=== PATIENT | female | born 1990 | race Two or more races ===

== ENCOUNTER 2017-12-26 21:47 | Emergency (ER) | payer OTHER ==
[~2017-12-26] VITALS: Ht 160 cm; Wt 46.3 kg
[2017-12-27] MEDS ORDERED: PEPCID AC20 MG PO (02:38)
== END 2017-12-27 03:02 | disposition home or self-care (01) ==
LOC: ER 21:47
DX: O26.891 Other specified pregnancy related conditions, first trimester (principal); K29.70 Gastritis, unspecified, without bleeding; R53.1 Weakness; E86.0 Dehydration; Z34.81 Encounter for supervision of other normal pregnancy, first trimester

== ENCOUNTER 2018-04-07 18:39 | Emergency (ER) | payer OTHER ==
[~2018-04-07] VITALS: Ht 160 cm; Wt 47.6 kg
[~2018-04-07 18:39] MED LIST: PEPCID AC20 MG PO
== END 2018-04-07 20:18 | disposition home or self-care (01) ==
LOC: ER 18:39
DX: J06.9 Acute upper respiratory infection, unspecified (principal)

== ENCOUNTER 2018-05-06 13:33 | Outpatient (CLI) | payer OTHER | END 2018-05-07 10:59 | disposition home or self-care (01) | LOC: OBS/DEL 13:33 | DX: O26.892 Other specified pregnancy related conditions, second trimester (principal); R42 Dizziness and giddiness; Z34.82 Encounter for supervision of other normal pregnancy, second trimester ==

== ENCOUNTER 2018-07-24 22:14 | Inpatient (IN) | payer OTHER ==
[~2018-07-24] VITALS: Ht 160 cm; Wt 56.7 kg
[2018-07-28] MEDS ORDERED: PERCOCET 5-3251 EACH PO (08:27)
== END 2018-07-28 10:00 | disposition home or self-care (01) | DRG 785 ==
LOC: OBS/DEL 22:14 → OB/GYN 07-25 04:17 → LDR 07-25 04:17 → OB/GYN 07-25 08:18
PROVIDERS: ADMIT Specialist
PROC: 4A1HXCZ Monitoring of Products of Conception, Cardiac Rate, External Approach (ICD-10-PCS; 2018-07-25)
PROC: 0UB70ZZ Excision of Bilateral Fallopian Tubes, Open Approach (ICD-10-PCS; 2018-07-25)
PROC: 10D00Z1 Extraction of Products of Conception, Low, Open Approach (ICD-10-PCS; principal; 2018-07-25 07:00)
DX: O34.211 Maternal care for low transverse scar from previous cesarean delivery (principal); O75.82 Onset (spontaneous) of labor after 37 completed weeks of gestation but before 39 completed weeks gestation, with delivery by (planned) cesarean section; Z30.2 Encounter for sterilization; Z3A.38 38 weeks gestation of pregnancy; Z37.0 Single live birth